=== PATIENT | male | born 1980 ===

== ENCOUNTER 2017-10-23 18:41 | Emergency (ER) | payer SELFPAY ==
[~2017-10-23] VITALS: Ht 180.3 cm; Wt 77.1 kg
--- NOTE | 2017-10-23 19:22 | Emergency Room Report ---
History of Present Illness General Chief Complaint: Male Urogenital Problems Source: Patient Present Illness HPI 27-year-old male presents to the emergency department complaining of penile discharge x4 days. Patient denies dysuria, external lesions, history of STD, testicular pain or swelling. he does report recent unprotected intercourse and wants to be treated for possible STD. Denies fevers, chills, abdominal pain, swollen tender lymph nodes or joint pain. Allergies: Coded Allergies: No Known Allergies (Unverified , 10/23/17) Patient History Past Medical History: see triage record Past Surgical History: none Pertinent Family History: none Immunizations: UTD Reviewed Nursing Documentation: PMH: Agreed, PSxH: Agreed Nursing Documentation-PMH Past Medical History: No Stated History Review of Systems All Other Systems: negative except mentioned in HPI Physical Exam Vital Signs Date Time Temp Pulse Resp B/P (MAP) Pulse Ox O2 Delivery O2 Flow Rate FiO2 10/23/17 18:57 98.4 103 20 151/108 99 Room Air Sp02 EP Interpretation: reviewed, normal General Appearance: no apparent distress, alert, GCS 15, non-toxic Head: normocephalic, atraumatic ENT: hearing grossly normal, normal voice Neck: full range of motion Respiratory: lungs clear, normal breath sounds, speaking full sentences Cardiovascular #1: regular rate, rhythm - VS documented as tachycardia, on exam HR ascultated at 86 BPM. Gastrointestinal: normal bowel sounds, non tender, soft, no guarding, no rebound Rectal: deferred Genitourinary: normal inspection, no CVA tenderness, deferred - Pt. declines genital examination. Musculoskeletal: back normal, gait/station normal, normal range of motion, non- tender Neurologic: alert, oriented x3, responsive, motor strength/tone normal, sensory intact, normal gait, speech normal Skin: normal color, no rash, warm/dry, well hydrated Lymphatic: no adenopathy Medical Decision Making PA Attestation Dr. Pacheco is my supervising Physician whom patient management has been discussed with. Diagnostic Impression: Primary Impression: Penile discharge, without blood ER Course 27-year-old male presents to the emergency department complaining of penile discharge x3 days. Patient denies dysuria, external lesions, history of STD, testicular pain or swelling. he does report recent unprotected intercourse and wants to be treated for possible STD. Denies fevers, chills, abdominal pain, swollen tender lymph nodes or joint pain. Ddx considered but are not limited to UTi , Urethritis, LGV, STI, Stone, Cystitis, prostatitis Vital signs: elevated BP, non tachycardic on exam, VS are WNL, pt. is afebrile H&PE are most consistent with Urethritis ORDERS: will treat prophylactically. ED INTERVENTIONS: -250mg Rocephin IM DISCHARGE: At this time pt. is stable for d/c to home. Will provide printed patient care instructions, and any necessary prescriptions. Care plan and follow up instructions have been discussed with the patient prior to discharge. Last Vital Signs Date Time Temp Pulse Resp B/P (MAP) Pulse Ox O2 Delivery O2 Flow Rate FiO2 10/23/17 18:57 98.4 103 20 151/108 99 Room Air Disposition: HOME, SELF-CARE Condition: Stable Scripts Doxycycline Hyclate* (VIBRAMYCIN*) 100 Mg Capsule 100 MG ORAL EVERY 12 HOURS for 7 Days, #14 CAP 0 Refills Prov: Sanaz Estrada 10/23/17 Patient Instructions: Chlamydia, Male, Gonorrhea Additional Instructions: Take medications as directed. You are being treated prophylactically for STD, testing is not a routine exam performed in the ED. Please see list of STD clinics if you wish to have testing performed. this is provided for your information. Follow up with a Primary Care Provider in 3-5 days, even if your symptoms have resolved. --Please review list of primary care clinics, if you do not already have a primary care provider Return sooner to ED if new symptoms occur, or current symptoms become worse. - Please note that this Emergency Department Report was dictated using [employer] customer service technology software, occasionally this can lead to erroneous entry secondary to interpretation by the dictation equipment. Sanaz Estrada Oct 23, 2017 19:22
[2017-10-23] MEDS ORDERED: VIBRAMYCIN100 MG ORAL (19:23)
[2017-10-23] MEDS ORDERED: Lidocaine 1% MPF 10mg/ml 5ml INJ ONE (19:30)
[2017-10-23 19:50] VITALS: BP 151/88
== END 2017-10-23 19:50 | disposition home or self-care (01) ==
LOC: EMR 19:40
DX: R36.9 Urethral discharge, unspecified (principal)
CPT/HCPCS: 96372; 99283; J0696